=== PATIENT | male | born 1975 ===

== ENCOUNTER 2018-03-17 00:34 | Emergency (ER) | payer SELFPAY ==
[2018-03-17 01:01] VITALS: RESP 16
--- NOTE | 2018-03-17 01:32 | ED PDOC ---
HPI: Allergic Reaction Time Seen by Provider: 03/17/18 01:30 Chief Complaint (Nursing): Allergic Reaction Chief Complaint (Provider): rash History Per: Patient (42 y/o male notes ongoing rash generalized x weeks not improving. Was seen in ED few weeks prior and given rx benadryl/prednisone/pepcid with improvement.) Past Medical History Reviewed: Historical Data, Nursing Documentation, Vital Signs Vital Signs: Last Vital Signs Temp 97.9 F 03/17/18 00:49 Pulse 80 03/17/18 00:49 Resp 16 03/17/18 00:49 BP 111/71 03/17/18 00:49 Pulse Ox 97 03/17/18 00:49 - Family History Family History: States: No Known Family Hx - Home Medications Home Medications: Ambulatory Orders Medication Instructions Recorded Cetirizine HCl [Zyrtec] 10 mg PO DAILY #5 capsule 03/01/18 Fluconazole [Diflucan] 150 mg PO QWK #2 tab 03/01/18 Prednisone 50 mg PO DAILY #4 tablet 03/01/18 Butenafine HCl [Lotrimin Ultra] 0.5 gm TP BID #30 cream..g. 03/17/18 - Allergies Allergies/Adverse Reactions: Allergies Allergy/AdvReac Type Severity Reaction Status Date / Time No Known Allergies Allergy Verified 03/01/18 01:01 Review of Systems ROS Statement: Except As Marked, All Systems Reviewed And Found Negative Physical Exam - Reviewed Nursing Documentation Reviewed: Yes Vital Signs Reviewed: Yes - Physical Exam Appears: Positive for: Well, Non-toxic, No Acute Distress Head Exam: Positive for: ATRAUMATIC, NORMAL INSPECTION, NORMOCEPHALIC Skin: Positive for: Normal Color, Warm, Rash (hyperpigmented lesions noted along chest wall. Noted dry scaly rash umbilical region and pubic region left side of inguinal region.) Eye Exam: Positive for: EOMI, Normal appearance, PERRL ENT: Positive for: Normal ENT Inspection Neck: Positive for: Normal, Painless ROM Cardiovascular/Chest: Positive for: Regular Rate, Rhythm Respiratory: Positive for: CNT, Normal Breath Sounds Gastrointestinal/Abdominal: Positive for: Normal Exam, Soft Back: Positive for: Normal Inspection Extremity: Positive for: Normal ROM Neurologic/Psych: Positive for: Alert, Oriented - ECG O2 Sat by Pulse Oximetry: 97 Disposition - Clinical Impression Clinical Impression: Tinea corporis - Patient ED Disposition Is Patient to be Admitted: No - Disposition Referrals: [facility] [place] [Outside] Rufus uTrk MD [Staff Provider] - Disposition: Routine/Home Disposition Time: :32 Condition: FAIR Prescriptions: Butenafine HCl [Lotrimin Ultra] 0.5 gm TP BID #30 cream..g. Instructions: Ringworm (DC) Print Language: SUDANESE
[2018-03-17 06:14] VITALS: BP 118/76; PULSE 84; TEMP 98.4; O2SAT 99
== END 2018-03-17 02:20 | disposition home or self-care (01) ==
LOC: H.ER 00:34
DX: B35.4 Tinea corporis (principal)